=== PATIENT | female | born 2000 | race Caucasian/White ===

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

== ENCOUNTER 2019-02-06 20:53 | Emergency (ER) | payer OTHER ==
[~2019-02-06] VITALS: Ht 154.9 cm; Wt 90.4 kg
[~2019-02-06 20:53] MED LIST changes: +DOXY-214 PO; +GUAI-173 PO; +IBUP800T48 PO; +MED4DP PO
[2019-02-06 20:56] VITALS: Ht 154.9 cm; Wt 90.4 kg
[2019-02-07] MEDS ORDERED: KETOROLAC 30 MG INJ IM STA (00:01)
[2019-02-07 01:43] VITALS: BP 128/72; PULSE 65; RESP 17
== END 2019-02-07 01:43 | disposition home or self-care (01) ==
LOC: FTE 20:53
DX: S93.402A Sprain of unspecified ligament of left ankle, initial encounter (principal); S90.32XA Contusion of left foot, initial encounter; V03.90XA Pedestrian on foot injured in collision with car, pick-up truck or van, unspecified whether traffic or nontraffic accident, initial encounter
CPT/HCPCS: 73610; 73630; 81025; J1885; 96372